=== PATIENT | male | born 1995 | race Two or more races ===

== ENCOUNTER 2018-10-25 03:03 | Emergency (ER) | payer SELFPAY ==
[2018-10-25] MEDS ORDERED: Morphine 2 MG/ML Syringe IVPUSH ONE (03:20)
[2018-10-25] MEDS ORDERED: Ketorolac 30 MG/ML SDV IVPUSH ONE (03:20)
[2018-10-25] MEDS ORDERED: Ondansetron 4 MG/2 ML SDV IVPUSH ONE (03:20)
[2018-10-25] MEDS ORDERED: Sodium Chloride 0.9% 1,000 ML IV ONE (03:20)
[2018-10-25] MEDS ORDERED: Sodium Chloride 0.9% 2.5 ML Syringe FLUSH PRN (03:20)
[2018-10-25] MEDS ORDERED: Sodium Chloride 0.9% 10 ML Syringe FLUSH PRN (03:20)
--- NOTE | 2018-10-25 03:24 | EDM.PDOC ---
ED HPI GENERAL MEDICAL PROBLEM - General Chief Complaint: Genitourinary Problem Stated Complaint: EXCRUCIATING BLADDER PAIN Time Seen by Provider: 10/25/18 03:10 - History of Present Illness INITIAL COMMENTS - FREE TEXT/NARRATIVE: HISTORY AND PHYSICAL: History of present illness: The patient is a 23-year-old male with no significant GI or history and no abdominal surgical history who presents with complaints of decreased urine output and only dribbling with incomplete voiding since 1:30 AM, 2 hours, and severe suprapubic and right lower abdominal pain that started one hour ago. He says that about one hour ago he was standing trying to force the urine and that made the pain worse and he did not take any medications prior to coming here. He 's had no hematuria or dysuria and no penile discharge and denies STD risks. He' s had no testicular pain or swelling and no trauma to the area and has not noticed any lumps bumps or hernias. He has no upper abdominal pain and he has had some slight nausea but no vomiting and had normal bowel movement yesterday. He says he drank more soda pop today than usual but normally he only drinks one a day and pushes hydration. He says the pain is deep stabbing and aching and is radiating to his right side and flank. The patient says he has never had issues with initiating a stream or urination in the past Review of systems: As per history of present illness and below otherwise all systems reviewed and negative. Past medical history: As per history of present illness and as reviewed below otherwise noncontributory. Surgical history: As per history of present illness and as reviewed below otherwise noncontributory. Social history: No reported history of drug or alcohol abuse. Family history: As per history of present illness and as reviewed below otherwise noncontributory. Physical exam: General: Well-developed well-nourished mildly overweight man who looks uncomfortable in the ED and vital signs are noted by me. HEENT: Atraumatic, normocephalic, negative for conjunctival pallor or scleral icterus, mucous membranes moist, throat clear, neck supple, nontender, trachea midline. Lungs: Clear to auscultation, breath sounds equal bilaterally, chest nontender. Heart: S1S2, regular rhythm no overt murmurs Abdomen: Soft, nondistended, minimal tenderness to mild tenderness on deep palpation of the suprapubic area and just to the right in the right lower quadrant but I cannot reproduce the pain exactly. Bowel sounds are mildly hypoactive and there is no tympany on percussion. There is no rebound or guarding. Negative for masses or hepatosplenomegaly. Negative for costovertebral tenderness. On palpation of the suprapubic area of the bladder does not appear to be distended Pelvis: Stable nontender. Genitourinary: Deferred. Rectal: Deferred. Extremities: Atraumatic, negative for cords or calf pain. Neurovascular unremarkable. Neuro: Awake, alert, oriented. Cranial nerves II through XII unremarkable. Cerebellum unremarkable. Motor and sensory unremarkable throughout. Exam nonfocal. Diagnostics: UA with micro-, urine culture, bladder scan postvoid if patient is able to void , ABC CMP CT scan of the abdomen and pelvis Therapeutics: IV fluids Toradol Zofran and morphine The patient did refuse the morphine Urine strainers, Flomax Bladder scan after a small void did reveal 93 mL. The patient is aware of all testing results and feels much better. I will give him Insty Meds for home and have advised urology follow-up Impression: Left distal ureterolithiasis Definitive disposition and diagnosis as appropriate pending reevaluation and review of above. lower abdomen Pain Score (Numeric/FACES): 6 - Related Data Allergies Allergy/AdvReac Type Severity Reaction Status Date / Time amoxicillin [From Augmentin] Allergy Other Verified 10/25/18 03:14 clavulanic acid Allergy Other Verified 10/25/18 03:14 [From Augmentin] Home Meds: Home Meds . 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 ED EXAM, GENERAL - Physical Exam Exam: See Below (see Dictation) Course - Vital Signs Last Recorded V/S: Last Vital Signs Temp 36.0 C 10/25/18 04:58 Pulse 91 10/25/18 04:58 Resp 16 10/25/18 04:58 BP 137/89 10/25/18 04:58 Pulse Ox 97 10/25/18 04:58 - Orders/Labs/Meds Orders: Active Orders 24 hr Category Date Time Status Communication Order [RC] STAT Care 10/25/18 04:46 Active CULTURE URINE [RM] Stat Lab 10/25/18 03:32 Received Sodium Chloride 0.9% [Saline Flush] Med 10/25/18 03:20 Active 10 ml FLUSH ASDIRECTED PRN Sodium Chloride 0.9% [Saline Flush] Med 10/25/18 03:20 Active 2.5 ml FLUSH ASDIRECTED PRN Saline Lock Insert [OM.PC] Stat Oth 10/25/18 03:19 Ordered Medication Orders Sodium Chloride (Saline Flush) 10 ml FLUSH ASDIRECTED PRN PRN Reason: Keep Vein Open Sodium Chloride (Saline Flush) 2.5 ml FLUSH ASDIRECTED PRN PRN Reason: Keep Vein Open Labs: Laboratory Tests 10/25/18 10/25/18 10/25/18 Range/Units 03:23 03:23 04:40 WBC 8.16 (4.0-11.0) K/uL RBC 5.49 (4.50-5.90) M/uL Hgb 16.2 (13.0-17.0) g/dL Hct 45.5 (38.0-50.0) % MCV 82.9 (80.0-98.0) fL MCH 29.5 (27.0-32.0) pg MCHC 35.6 (31.0-37.0) g/dL RDW Std Deviation 38.1 (28.0-62.0) fl RDW Coeff of Shiv 13 (11.0-15.0) % Plt Count 255 (150-400) K/uL MPV 9.30 (7.40-12.00) fL Neut % (Auto) 66.3 (48.0-80.0) % Lymph % (Auto) 23.0 (16.0-40.0) % [place] % (Auto) 9.2 (0.0-15.0) % Eos % (Auto) 1.3 (0.0-7.0) % Baso % (Auto) 0.2 (0.0-1.5) % Neut # (Auto) 5.4 (1.4-5.7) K/uL Lymph # (Auto) 1.9 (0.6-2.4) K/uL [place] # (Auto) 0.8 (0.0-0.8) K/uL Eos # (Auto) 0.1 (0.0-0.7) K/uL Baso # (Auto) 0.0 (0.0-0.1) K/uL Nucleated RBC % 0.0 /100WBC Nucleated RBCs # 0 K/uL Sodium 142 (136-148) mmol/L Potassium 3.4 L (3.5-5.1) mmol/L Chloride 102 (98-107) mmol/L Carbon Dioxide 28.7 (21.0-32.0) mmol/L BUN 18 (7.0-18.0) mg/dL Creatinine 1.6 H (0.8-1.3) mg/dL Est Cr Clr Drug Dosing 75.17 mL/min Estimated GFR (MDRD) 52.9 ml/min Glucose 121 H (74-106) mg/dL Calcium 9.2 (8.5-10.1) mg/dL Total Bilirubin 0.6 (0.2-1.0) mg/dL AST 21 (15-37) IU/L ALT 45 (14-63) IU/L Alkaline Phosphatase 107 (46-116) U/L Total Protein 7.7 (6.4-8.2) g/dL Albumin 4.0 (3.4-5.0) g/dL Globulin 3.7 (2.6-4.0) g/dL Albumin/Globulin Ratio 1.1 (0.9-1.6) Urine Color YELLOW Urine Appearance CLOUDY Urine pH 7.0 (5.0-8.0) Ur Specific [place] 1.025 (1.001-1.035) Urine Protein 30 H (NEGATIVE) mg/dL Urine Glucose (UA) NEGATIVE (NEGATIVE) mg/dL Urine Ketones TRACE H (NEGATIVE) mg/dL Urine Occult Blood LARGE H (NEGATIVE) Urine Nitrite NEGATIVE (NEGATIVE) Urine Bilirubin SMALL H (NEGATIVE) Urine Urobilinogen 1.0 (<2.0) EU/dL Ur Leukocyte Esterase NEGATIVE (NEGATIVE) Urine RBC 35-40 (0-2/HPF) Urine WBC 0-1 (0-5/HPF) Ur Epithelial Cells RARE (NONE-FEW) Urine Bacteria RARE (NEGATIVE) Meds: Medications Generic Name Dose Route Start Last Admin Trade Name Freq PRN Reason Stop Dose Admin Sodium Chloride 10 ml 10/25/18 03:20 Saline Flush FLUSH ASDIRECTED PRN Keep Vein Open Sodium Chloride 2.5 ml 10/25/18 03:20 Saline Flush FLUSH ASDIRECTED PRN Keep Vein Open Discontinued Medications Generic Name Dose Route Start Last Admin Trade Name Freq PRN Reason Stop Dose Admin Sodium Chloride 1,000 mls @ 999 mls/hr 10/25/18 03:20 10/25/18 03:27 Normal Saline IV 10/25/18 04:20 999 mls/hr STAT ONE Administration Ketorolac Tromethamine 30 mg 10/25/18 03:20 10/25/18 03:28 Toradol IVPUSH 10/25/18 03:21 30 mg ONETIME ONE Administration Morphine Sulfate 2 mg 10/25/18 03:20 10/25/18 03:28 Morphine IVPUSH 10/25/18 03:21 Not Given ONETIME ONE Ondansetron HCl 4 mg 10/25/18 03:20 10/25/18 03:27 Zofran IVPUSH 10/25/18 03:21 4 mg ONETIME ONE Administration Tamsulosin HCl 0.4 mg 10/25/18 04:46 10/25/18 04:57 Flomax PO 10/25/18 04:47 0.4 mg ONETIME ONE Administration Departure - Departure Time of Disposition: 05:02 Disposition: Home, Self-Care 01 Condition: Good Clinical Impression: Ureterolithiasis - Discharge Information Instructions: Kidney Stones, [id number] Referrals: PCP,None [Primary Care Provider] - Forms: ED Department Discharge Additional Instructions: The following information is given to patients seen in the emergency department who are being discharged to home. This information is to outline your options for follow-up care. We provide all patients seen in our emergency department with a follow-up referral. The need for follow-up, as well as the timing and circumstances, are variable depending upon the specifics of your emergency department visit. If you don't have a primary care physician on staff, we will provide you with a referral. We always advise you to contact your personal physician following an emergency department visit to inform them of the circumstance of the visit and for follow-up with them and/or the need for any referrals to a consulting specialist. The emergency department will also refer you to a specialist when appropriate. This referral assures that you have the opportunity for followup care with a specialist. All of these measure are taken in an effort to provide you with optimal care, which includes your followup. Under all circumstances we always encourage you to contact your private physician who remains a resource for coordinating your care. When calling for followup care, please make the office aware that this follow-up is from your recent emergency room visit. If for any reason you are refused follow-up, please contact the [facility] emergency department at and ask to speak to the emergency department charge nurse. [facility] [address] [place] [id number] Push hydration and avoid caffeinated products. Please take medications as directed using the Flomax daily and taking Zofran as needed for nausea and vomiting. He may use [id number] Tylenol or ibuprofen for pain and take the stronger [place] as needed to control severe pain. Please only take the [place] when you're at home as it may make you drowsy or sleepy. Please call and schedule a follow-up appointment with our urologist Dr. Verduzco using resources given to above and return to ER as needed as discussed. Strain all urine output looking for the kidney stone as it may pass in the next several days. - My Orders Last 24 Hours: My Active Orders 10/25/18 03:19 Saline Lock Insert [OM.PC] Stat 10/25/18 03:20 Sodium Chloride 0.9% [Saline Flush] 10 ml FLUSH ASDIRECTED PRN Sodium Chloride 0.9% [Saline Flush] 2.5 ml FLUSH ASDIRECTED PRN 10/25/18 03:32 CULTURE URINE [RM] Stat 10/25/18 04:46 Communication Order [RC] STAT - Assessment/Plan Last 24 Hours: My Active Orders 10/25/18 03:19 Saline Lock Insert [OM.PC] Stat 10/25/18 03:20 Sodium Chloride 0.9% [Saline Flush] 10 ml FLUSH ASDIRECTED PRN Sodium Chloride 0.9% [Saline Flush] 2.5 ml FLUSH ASDIRECTED PRN 10/25/18 03:32 CULTURE URINE [RM] Stat 10/25/18 04:46 Communication Order [RC] STAT
[2018-10-25 03:51] LABS: CARBON DIOXIDE,CO2 28.7 mmol/L (21.0-32.0); POTASSIUM,K 3.4 mmol/L (3.5-5.1)
[2018-10-25] MEDS ORDERED: Tamsulosin 0.4 MG Cap.ER PO ONE (04:46)
--- NOTE | 2018-10-25 04:46 | CT ---
INDICATION: abdominal and flank pain CT ABDOMEN AND PELVIS WITHOUT CONTRAST TECHNIQUE: Multidetector CT imaging was performed through the abdomen and pelvis without intravenous or oral contrast. Coronal and sagittal reconstructions were generated. COMPARISON: None. FINDINGS: There is a 3mm stone in the distal right ureter just above the UVJ producing mild ureteral dilation and mild right hydronephrosis. No other urinary tract stones are noted. Included portions of the lower chest show the lung bases to be clear. No abnormalities are demonstrated in the unenhanced liver, spleen, gallbladder, pancreas, stomach, and adrenals. Bowel loops are of normal caliber and demonstrate no wall thickening. The appendix is normal. No free fluid or free air is identified. The abdominal aorta appears normal. No abnormally enlarged lymph nodes are seen. The urinary bladder, prostate, and seminal vesicles are within normal limits. Visualized bones show no significant findings. IMPRESSION: 3mm stone in the distal right ureter producing mild right hydroureteronephrosis. ANIL CARDONA MD [employer] Dictated by: Louis Cardona MD @ 10/25/2018 04:44:50 (Electronically Signed)
== END 2018-10-25 05:09 | disposition home or self-care (01) ==
LOC: MW.ED 03:03
DX: N13.2 Hydronephrosis with renal and ureteral calculous obstruction (principal); Z88.1 Allergy status to other antibiotic agents
CPT/HCPCS: 36415; 74176; 80053; 81001; 85025; 87086; 96361; 96374; 96375; 99284; A9270; J1885; J2405; J7040